=== PATIENT | male | born 2000 | race Two or more races ===

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

== ENCOUNTER → 2023-11-20 | Emergency (ER) | payer OTHER ==
[~2023-11-20] VITALS: Ht 185.4 cm; Wt 108.0 kg
== END | disposition left against medical advice (07) ==
LOC: ER 20:21
DX: Z53.21 Procedure and treatment not carried out due to patient leaving prior to being seen by health care provider (principal)